=== PATIENT | female | born 1950 | race Caucasian/White ===

== ENCOUNTER → 2016-09-27 | Outpatient (CLI) | payer OTHER | LOC: CIMAGING 07:02 | PROVIDERS: ATTEND Internal Medicine | DX: R10.11 Right upper quadrant pain (principal); N20.0 Calculus of kidney | CPT/HCPCS: 76705-PO ==

== ENCOUNTER → 2016-12-02 | Outpatient (CLI) | payer OTHER | LOC: FIMAGING 12:09 | PROVIDERS: ATTEND Urology | DX: N20.0 Calculus of kidney (principal) ==

== ENCOUNTER → 2017-02-06 | Outpatient (CLI) | payer OTHER | LOC: FIMAGING 16:05 | PROVIDERS: ATTEND Internal Medicine | DX: Z12.31 Encounter for screening mammogram for malignant neoplasm of breast (principal) | CPT/HCPCS: G0202 ==

== ENCOUNTER 2017-02-10 15:27 | Emergency (ER) | payer OTHER ==
[2017-02-10 15:40] VITALS: RESP 18; TEMP 98
--- NOTE | 2017-02-10 16:00 | EDPHY ---
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 This morning when she woke up she noticed a bruise on her left inner thigh. She tried to massage without any relief. This is all in the area where she had her 1st DVT 30 years ago. She has had 2 subsequent DVTs but she is unsure if either of them occurred while she was on Coumadin. Her last DVT was 7 years ago. She was also concerned that she was having some pain and a bump in the area of her popliteal fossa where she had her prior DVT. She has not had any new leg swelling. There has been no redness. She denies any chest pain or shortness of breath. She has no symptoms in her right leg. She said that all the tests for genetic reason for her blood clotting were negative. Since the cramping last night she has had no pain in her left leg. REVIEW OF SYSTEMS: As in HPI, and all other systems reviewed and are negative Source: Patient - Personal History Current Tetanus Diphtheria and Acellular Pertussis (TDAP): Yes - Medical/Surgical History Hx Asthma: No Hx Chronic Respiratory Disease: No Hx Diabetes: No Hx Cardiac Disease: No Hx Renal Disease: No Hx Cirrhosis: No Hx Alcoholism: No Hx HIV/AIDS: No Hx Splenectomy or Spleen Trauma: No Other PMH: PSH: B knee;. PMH: DVT; - Social History Smoking Status: Never smoked - Physical Exam Exam: General Appearance: Alert and no distress. Eyes: Pupils equal and round no injection. Lungs: Bilateral clear to auscultation with no wheezes, rales, rhonchi, normal respiratory effort Cardiac: Regular rate and rhythm S1, S2, no murmurs, gallops, rubs appreciated Musculoskeletal: Neck is supple and nontender. Extremities: Left thigh positive ecchymoses with no tenderness or surrounding erythema, full range of motion of left hip, knee, and foot. DP pulses are 2+ and equal bilaterally. PT pulses are 2+ and equal bilaterally. There is no edema. Skin: No rashes or lesions except as described above. Constitutional: Initial Vital Signs Temperature (C) 36.6 C 02/10/17 15:37 Heart Rate 74 02/10/17 15:37 Respiratory Rate 18 02/10/17 15:37 Blood Pressure 119/64 02/10/17 15:37 O2 Sat (%) 97 02/10/17 15:37 O2 Delivery Mode Room Air Allergies/Adverse Reactions: meperidine HCl [From Demerol] Allergy (Verified 07/27/14 23:10) Home Medications: Medication Instructions Recorded Warfarin Sodium [Coumadin 5MG (RX)] 5 mg PO DAILY16 #30 tab 02/08/13 Medical Decision Making ED Course/Re-evaluation: 66-year-old woman with history of DVT presents with ecchymoses on her left thigh and leg cramping last night which has subsequently resolved. She is well appearing and hemodynamically stable. She was concerned about recurrent DVT. Her arm is currently therapeutic today at 2.9. Given the lack of other signs and symptoms of DVT and her therapeutic INR think this is unlikely that the symptoms represent a new DVT. However I am recommending that if she develops recurrent and/or ongoing pain, any leg swelling or redness that she should return immediately for an ultrasound at that time. Patient understands and is agreeable to this plan. - Data Points Laboratory Results: 02/10/17 16:02 PT 30.4 SEC H SEC (12.0-15.0) INR 2.92 H (0.83-1.16) Departure - Departure Disposition: Home, Routine, Self-Care Clinical Impression: Cramps of left lower extremity Condition: Good Instructions: Leg Cramps (ED) Additional Instructions: You were seen by Dr. Priscila Heart today. Your INR was 2.9. This is in the therapeutic range and therefore think it is unlikely that he has developed another DVT. If your leg pain returns and persists and/or your leg swells up, gets red or seems to be getting worse in any way an ultrasound may be indicated at that time. Please follow-up with your anticoagulation clinic and your primary care physician. Return for any worsening or new concerns. Referrals: Melany Suazo MD [Primary Care Provider] - As per Instructions
[2017-02-10 16:19] LABS: INR 2.92 (0.83-1.16); PROTIME(PATIENT) 30.4 SEC (12.0-15.0)
[2017-02-10 16:56] VITALS: BP 117/68; PULSE 64; O2SAT 96
== END 2017-02-10 16:54 | disposition home or self-care (01) ==
LOC: CED 15:27
DX: M79.652 Pain in left thigh (principal); Z79.01 Long term (current) use of anticoagulants
CPT/HCPCS: 85610-PO

== ENCOUNTER → 2018-02-15 | Outpatient (CLI) | payer OTHER | LOC: FIMAGING 16:02 | PROVIDERS: ATTEND Internal Medicine | DX: Z12.31 Encounter for screening mammogram for malignant neoplasm of breast (principal) ==

== ENCOUNTER 2018-11-07 05:46 | Emergency (ER) | payer OTHER ==
--- NOTE | 2018-11-07 06:03 | EDPHY ---
H & P Stated Complaint: pt had left knee surgery10/31 and now having swelling and pain to leg - Personal History Current Tetanus/Diphtheria Vaccine: Yes Current Tetanus Diphtheria and Acellular Pertussis (TDAP): Yes - Medical/Surgical History Hx Asthma: No Hx Chronic Respiratory Disease: No Hx Diabetes: No Hx Cardiac Disease: No Hx Renal Disease: No Hx Cirrhosis: No Hx Alcoholism: No Hx HIV/AIDS: No Hx Splenectomy or Spleen Trauma: No Other PMH: PSH: B knee;. PMH: DVT; - Social History Smoking Status: Never smoked Time Seen by Provider: 11/07/18 05:56 HPI/ROS: Chief Complaint: Left leg pain HPI: 68-year-old woman who is 1 week status post left knee meniscal repair by Dr. Betancourt. The patient has a history of several DVTs in the past postoperatively. Patient is currently on Coumadin. Her INR was last checked 2 days ago was 1.8. Patient has had worsening aching in her left medial thigh and she feels a lump that she is concerned might be a blood clot. This feels similar to prior blood clots in the past. No lower calf pain or swelling. No chest pain or shortness of breath. Sutures removed from her knee scope sites 2 days ago. She has not had any swelling. No redness, no warmth. No fevers or chills. ROS: 10 systems were reviewed and were negative except those elements noted in the HPI. PMH: DVT in the past Social History: No smoking, no alcohol, no recreational drug use Family History: non-contributory Physical Exam: Gen: Awake, Alert, No Distress HEENT: Nose: no rhinorrhea Eyes: PERRLA, EOMI Mouth: Moist mucosa Neck: Supple, no JVD Chest: nontender, lungs clear to auscultation Heart: S1, S2 normal, no murmur Abd: Soft, non-tender, no guarding Back: no CVA tenderness, no midline tenderness Ext: no edema, left knee incisions are clean dry and intact. No calf swelling, no calf tenderness. Patient does have tenderness in the medial aspect of her left thigh without erythema or warmth. Skin: no rash Neuro: CN II-XII intact, Sensation grossly intact, Strength 5/5 in bilateral upper and lower extremities (Erik Burton) Constitutional: Initial Vital Signs Temperature (C) 36.6 C 05/15/19 05:47 Heart Rate 84 11/07/18 05:47 Respiratory Rate 16 11/07/18 05:47 Blood Pressure 145/69 H 11/07/18 05:47 O2 Sat (%) 97 11/07/18 05:47 O2 Delivery Mode Room Air Allergies/Adverse Reactions: meperidine HCl [From Demerol] Allergy (Verified 11/07/18 05:51) Home Medications: Medication Instructions Recorded Warfarin Sodium [Coumadin 5MG (RX)] 5 mg PO DAILY16 #30 tab 02/08/13 Enoxaparin [Lovenox 60 MG (*)] 60 mg SQ Q12H #42 syr 11/07/18 Medical Decision Making ED Course/Re-evaluation: 0700: Patient is signed out to me at change of shift by Dr. Burton. The patient is awaiting ultrasound results. The patient is sitting comfortably in her bed. She had no new complaints. Juan surgical incision sites are clean dry and intact. There is no erythema or warmth. The patient has no significant leg tenderness. She is neurovascular intact distally. No cords. Ultrasound: Please refer the dictated report. The patient has partially occlusive thrombus in the left femoral and popliteal veins. I discussed the result with the patient. I answered all her questions. I discussed the case with the on-call hospitalist, Dr. Mirza. I also discussed the case with Dr. Beatrice denney from Hematology. His recommendation was to start the patient on Lovenox for the next 3 weeks (1 milligram/kilogram twice daily SQ). The 1st dose was given in the emergency department. I discussed case with her primary care physician's office for close follow-up. I discussed the plan with the patient. I answered all her questions. She understands she needs close follow-up with her primary care physician. She should have her INR rechecked in 1-2 days. (Jael Peña) 68-year-old woman with a history of DVT in the past is 1 week status post left knee surgery. Patient has pain and discomfort concern for possible DVT. She had a subtherapeutic INR 2 days ago. Plan will be to check INR and obtain lower extremity ultrasound to evaluate for DVT. [address] Peña pending results of her lower extremity ultrasound and INR. (Erik Burton) - Data Points Medications Given: Discontinued Medications Enoxaparin Sodium (Lovenox) 60 mg SC EDNOW ONE Stop: 11/07/18 07:19 Last Admin: 11/07/18 07:44 Dose: 60 mg Departure - Departure Disposition: Home, Routine, Self-Care Clinical Impression: DVT (deep venous thrombosis) Qualifiers: DVT location: lower extremity Affected thrombotic vein of extremity: femoral Chronicity: acute Laterality: left Qualified Code(s): I82.412 - Acute embolism and thrombosis of left femoral vein Condition: Good Instructions: Deep Vein Thrombosis (ED) Additional Instructions: You were found to have a partial clot in your left femoral and popliteal veins. The flagger recommends that you start Lovenox twice daily. You were given the 1st dose in the emergency department. Your next dose should be this evening in 12 hr. You need close follow-up with Dr. Queen. Call her office to make an appointment for the next 1-2 days. You need to have your Coumadin level rechecked in 1-2 days. Referrals: Melany Suazo MD [Primary Care Provider] - As per Instructions Prescriptions: Enoxaparin [Lovenox 60 MG (*)] 60 mg SQ Q12H #42 syr
[2018-11-07 06:33] LABS: INR 2.25 (0.83-1.16); PROTIME(PATIENT) 23.8 SEC (12.0-15.0)
[2018-11-07] MEDS ORDERED: ENOXAPARIN 60 MG/0.6 ML SYR SC ONE (07:18)
[2018-11-07 07:48] VITALS: BP 154/88
== END 2018-11-07 07:53 | disposition home or self-care (01) ==
DX: I82.412 Acute embolism and thrombosis of left femoral vein (principal); Z79.01 Long term (current) use of anticoagulants
CPT/HCPCS: J1650

== ENCOUNTER 2018-12-07 01:09 | Emergency (ER) | payer OTHER | END 2018-12-07 03:21 | disposition home or self-care (01) ==